=== PATIENT | female | born 1970 | race Caucasian/White ===

== ENCOUNTER 2024-08-15 12:07 | Emergency (ER) | payer OTHER, SELFPAY ==
[2024-08-15 12:10] VITALS: BP 102/60; PULSE 70; RESP 18; TEMP 36.8; O2SAT 95; BMI 21.6
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
[2024-08-15 12:57] LABS: Microscopic, Urine URINE MICROSCOPIC (MICROSCOPIC)
[2024-08-15 13:09] LABS: Bacteria,Urine Trace /lpf; RBC,Urine Occasional #/hpf (0-3)
[2024-08-15 13:11] LABS: Appearance,Urine CLEAR (Clear); Bilirubin,Urine 2+ (Negative); Blood, Urine Negative (Negative); Color,Urine YELLOW (Yellow); Glucose,Urine (UA) Negative (Negative); Ketones,Urine TRACE (Negative); Leukocyte Esterase,Urine 1+ (Negative); Nitrate,Urine Negative (Negative); Protein,Urine Negative (Negative); Specific Gravity, Urine >= 1.030 (1.005-1.030)
[2024-08-15 13:21] LABS: Benzodiazepines Screen,Urine Negative ng/ml (<200)
[2024-08-15 13:22] LABS: Amphetamine/Metha Screen,Urine Negative ng/ml (<1000)
[2024-08-15 13:23] LABS: Barbiturates Screen,Urine Negative ng/ml (<200); Cannabinoid Screen,Urine Negative ng/ml (<50)
[2024-08-15 13:24] LABS: Cocaine Screen,Urine Negative ng/ml (<300); Methadone Screen,Urine Negative ng/ml (<300)
[2024-08-15 13:25] LABS: Opiate Screen,Urine Negative ng/ml (<300)
[2024-08-15 13:26] LABS: Phencyclidine Screen,Urine Negative ng/ml (<25)
--- NOTE | 2024-08-15 13:41 | ECG_ITS ---
APPROVED REPORT Exam: Resting ECG HR:94 bpm ECG Measurements Heart Rate 94 AXES VT 164 P 51 QRSd 103 QRS -52 QT 318 T 62 QTc 369 Conclusion SINUS RHYTHM LOW QRS VOLTAGE IN PRECORDIAL LEADS [QRS DEFLECTION < 1.0 mV IN CHEST LEADS] LEFT ANTERIOR FASCICULAR BLOCK [QRS AXIS <= -45, QR IN I, RS IN II] NONSPECIFIC T-WAVE ABNORMALITY ABNORMAL ECG UNCONFIRMED REPORT Electronically signed by : MARISABEL COTO, 08/16/2024 05:44:07
[2024-08-15 14:07] LABS: Basophils % 0.3 % (0.1-2.0); Eosinophils % 0.2 % (0.1-12.0); Hematocrit 45.8 % (37.0-47.0); Hemoglobin 15.7 g/dL (12.2-16.2); Lymphocytes # 0.4 K/mm3 (0.7-4.5); Lymphocytes % 5.5 % (10-50); Mean Corpuscular HGB Conc 34.3 g/dL (31.8-35.4); Mean Corpuscular Hemoglobin 32.2 pg (27.0-31.2); Mean Platelet Volume 9.1 fl (7.4-10.4); Monocytes # 0.5 K/mm3 (0.1-1.0); Monocytes % 8.1 % (1.7-9.3); Neutrophils # 5.5 K/mm3 (1.8-7.8); Neutrophils % 85.7 % (37.0-80.0); Platelet Count 164 K/mm3 (142-424); Red Blood Count 4.87 M/mm3 (4.20-5.40); Red Cell Distribution Width 11.9 % (11.5-17.5); White Blood Count 6.4 K/mm3 (4.8-10.8)
[2024-08-15 14:18] LABS: Albumin Level 4.8 g/dl (3.5-5.0); Chloride 101 mmol/L (98-107); Sodium 136 mmol/L (136-145)
[2024-08-15 14:21] LABS: Alanine Aminotransferase 42 U/L (12-78); Albumin/Globulin Ratio 1.3 (1.1-1.8); Alkaline Phosphatase 63 U/L (38-126); Aspartate Amino Transferase 38 U/L (14-36); Bilirubin,Total 0.9 mg/dl (0.2-1.3); Blood Urea Nitrogen 20 mg/dl (7-17); Calcium 9.4 mg/dl (8.4-10.2); Carbon Dioxide 28 mmol/L (22.0-30.0); Creatinine Clearance Estimated 67 mL/min (50-200); Estimated Glomerular Filt Rate 65 ml/min (>60); GFR (African American) 79 ML/MIN (>60); Globulin 3.6 g/dL (1.3-3.2); Glucose 93 mg/dl (74-100); Total Protein,Serum 8.4 g/dl (6.3-8.2)
[2024-08-15 14:22] LABS: Acetaminophen < 10 ug/ml (10-30); Ethyl Alcohol < 10 mg/dl (0-10); Salicylate < 1.0 mg/dL (2.0-20.0)
[2024-08-15 15:24] LABS: Triiodothryronine (T3) Uptake 29 % (23.5-40.5)
[2024-08-15 15:25] LABS: Free Thyroxine Index 3.8 ug/dL (5.93-13.13)
--- NOTE | 2024-08-15 15:29 | PC.NURSE ---
Pt is s/w [facility] Intake Nurse
--- NOTE | 2024-08-15 15:30 | PC.NURSE ---
Called [facility] back to double check and make sure they got the fax information. they were checking to see and would call us back
--- NOTE | 2024-08-15 15:31 | PC.NURSE ---
at 1500 hrs called [facility] about this pt. They had me fax over all the information and would call us back after they got it.
[2024-08-15] MEDS: ACETAMINOPHEN 500MG TAB 1000 MG PO (15:38)
[2024-08-15] MEDS: BELLADONNA ALKALOIDS 60 ML ML PO (15:38)
[2024-08-15 15:39] LABS: Thyroid Stimulating Hormone 0.85 uIU/mL (0.465-4.68)
--- NOTE | 2024-08-15 15:45 | PC.NURSE ---
[facility] called back and the Doctor advised pt would not be a good fit for [facility] due to as paranoid as she is and wouldnt be able to sign consent due to her paranoia.
--- NOTE | 2024-08-15 16:08 | PC.NURSE ---
As pt's face-sheet from [facility] listed no guardian, family, POA. Called [facility] and confirmed that there is not a guardian or family list. They also states pt is NOT a desai of the [facility].
--- NOTE | 2024-08-15 16:34 | PC.NURSE ---
Faxed 710 paperwork to [employer] [employer] for [employer] to sign and return.
--- NOTE | 2024-08-15 18:08 | PC.NURSE ---
Called [employer] to check on the status of the 710 paperwork. [employer]os[employer] Dis[employer] Manager states I gave you the wrong fax number. It was for the front office and they'll shred it in the morning . States fax # is [phone] and will come to [employer]'s direct desk.
--- NOTE | 2024-08-15 19:17 | PC.NURSE ---
Contacted [employer] [employer] regarding clarification for this patient. Spoke with Og Fraga who will be signing off on this patient. Clarified that our facility only signs the 710 and 711 forms and that the recieving facilty will fill out the 712 and 713 form and get those back to him. He was understanding and will get us the forms back as soon as possible.
[2024-08-15] MEDS: ONDANSETRON 4MG ODT 4 MG SL (20:49)
--- NOTE | 2024-08-15 22:43 | PC.NURSE ---
Called [facility] for a transfer to [facility] said they would call back in 5-10 minutes
--- NOTE | 2024-08-15 23:30 | PC.NURSE ---
Report given to Dali GOOD at [facility]
[2024-08-16 01:38] VITALS: BP 113/76; PULSE 119; RESP 16; TEMP 36.1; O2SAT 98
--- NOTE | 2024-08-16 01:55 | PC.NURSE ---
Pt transported to [facility] by [employer]. Pt awake and alert Skin pink warm and dry SPeech clear Gait steady at time of transfer
[2024-08-16 02:30] LABS: HIV Combo NEGATIVE (Negative)
[2024-08-16 02:39] LABS: Hepatitis C Ab Qual. W/ RFX REACTIVE (Negative)
== END 2024-08-16 01:54 ==
PROVIDERS: Physician Assistant; Emergency Provider Emergency Medicine; PCP Nurse Practitioner Acute Care
DX: F29 Unspecified psychosis not due to a substance or known physiological condition (principal); F21 Schizotypal disorder
CPT/HCPCS: 80053; 80307; 80320; 80329; 81001; 84436; 84443; 84479; 85025; 86803; 87086; 87389; 87522; 93005; 99285; G0480; Q0162

== ENCOUNTER 2024-12-26 15:28 | Emergency (ER) | payer OTHER, SELFPAY ==
--- NOTE | 2024-12-26 15:38 | HMH.EDGENADL ---
Discharge Plan Disposition Patient Disposition: Home, Self-Care Condition: Good Prescriptions Prescriptions: New cefadroxil 500 mg capsule 500 mg PO BID Qty: 14 0RF No Action benztropine 0.5 mg tablet 0.5 mg PO DAILY risperidone 3 mg tablet 3 mg PO BID paliperidone 6 mg tablet extended release 24hr 12 mg PO DAILY cholecalciferol (vitamin D3) 50 mcg (2,000 unit) tablet 50 mcg PO DIRECTED Rx Instructions: Give 1 tablet by mouth three times weekly on Sunday, Sunday, and Sunday Referrals Follow up/Referrals: Dali Baez DO [Emergency Provider, Emergency Medicine] - See instructions Provider,Referral, [Primary Care Provider, Medical] - See instructions Tea Bowman MD [Referring, Vascular Surgery] - See instructions Activity Restrictions/Add. Instructions Additional Instructions/Restrictions: You can take Tylenol and Motrin at home if needed for pain control. Otherwise return to the emergency department or follow-up with your primary care provider. Take the antibiotics as prescribed for your urinary tract infection. 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 Clinical Impressions Clinical Impression: Cough, Musculoskeletal pain Instructions Patient Instructions: DI for Acute Abdominal Pain Print Language Print Language: [place] Discharge ED Provider: Dali Baez General Adult HPI General Chief complaint: Abdominal Pain Stated complaint: Schizophrenia Time Seen by Provider: 12/26/24 15:38 History of Present Illness HPI narrative: Patient is a 54-year-old female with a past medical history of schizophrenia on daily medications who presents to the emergency department with bilateral hip pain, shortness of breath and cough. Patient states that she has had a cough for 1 month, productive in nature but is yellow. Patient denies any fevers. Patient denies any chest pain. Patient states that she has had bilateral hip pain for the last few days. Patient denies any recent trauma. Patient denies any back pain headache or vision changes. Patient denies any abdominal pain, vomiting diarrhea. Patient denies any cardiac medical problems. Denies any history of blood clots. Is a daily smoker, smokes a pack a day. Denies any other drug use. Related Data Home Medications ?Medication ?Instructions ?Recorded ?Confirmed benztropine 0.5 mg tablet 0.5 mg PO DAILY 08/15/24 08/15/24 cholecalciferol (vitamin D3) 50 50 mcg PO DIRECTED 08/15/24 08/15/24 mcg (2,000 unit) tablet paliperidone 6 mg tablet,extended 12 mg PO DAILY 08/15/24 08/15/24 release 24 hr risperidone 3 mg tablet 3 mg PO BID 08/15/24 08/15/24 Previous Rx's ?Medication ?Instructions ?Recorded cefadroxil 500 mg capsule 500 mg PO BID #14 caps 12/26/24 Allergies Allergy/AdvReac Type Severity Reaction Status Date / Time prochlorperazine (From Allergy Unknown Verified 08/15/24 13:53 Compazine) allergy reaction [facility] Disclaimer: The information contained in this section may have been updated after the patient was seen, as this information can be updated by other users. Medical History (Updated 12/26/24 @ 19:09 by Dali Baez DO) Vitamin D deficiency Schizophrenia Social History (Updated 08/15/24 @ 21:35 by MIL Edwards) Smoking Status: Current every day smoker alcohol intake: never current occupational status: disabled Travel in the last 8 weeks?: None housing: other lives independently: No ([place] Resident) Have you lived/traveled outside US in past 30 days?: No Contact w/someone who lives/traveled outside US past 30 days?: No Exposure to someone with infectious disease in past 14 days?: No Do you have a fever (greater than 100.4 F or 38 C)?: No Have you tested positive for COVID-19?: No Exposed to someone with COVID-19 in past 14 days?: No Do you have a sore throat?: No Do you have a cough?: No Do you have any weakness?: No Do you have any diarrhea?: No Are you experiencing any unusual bleeding?: No Do you have any muscle aches/pain?: No Do you have any abdominal pain?: No Are you experiencing loss of taste or smell?: No ROS Obtained: Yes All systems reviewed & no additional complaints except as documented and Yes Systems reviewed as appropriate & no additional complaints except as documented Physical Exam General General appearance: alert Head Head exam: atraumatic, normocephalic and normal inspection Eye Eye exam: Present normal appearance, PERRL and EOMI; Absent scleral icterus ENT ENT exam: Present normal exam and normal external ear exam Neck Neck exam: Present normal inspection and full ROM Chest Chest inspection: Present normal inspection and symmetric chest wall rise Respiratory Respiratory exam: Present normal lung sounds bilaterally, wheezes and other (Expiratory wheezing in right lung field); Absent respiratory distress Cardiovascular Cardiovascular exam: Present normal rhythm, tachycardia and normal heart sounds Abdominal Exam Abdominal exam: Present soft and distention; Absent tenderness, guarding or rebound Extremities Exam Extremities exam: Present normal inspection, full ROM and other (Bilateral hip tenderness) Back Exam Back exam: Present normal inspection and full ROM Neurological Exam Neurological exam: Present alert, oriented X3 and normal gait Psychiatric Psychiatric exam: Present normal affect and normal mood Skin Skin exam: Present warm and dry Medical Decision Making Medical Records Screening: Per USPSTF and CDC recommendations, given the prevalence of disease in our region, it is our hospital?s policy to screen for HIV and viral Hepatitis for all patients aged 18 and over and those with ongoing risk factors. Keven Inquiry Pt receiving controlled substance: No Vital Signs: 12/26/24 15:57 12/26/24 16:00 12/26/24 16:30 Temperature 97.9 F Temperature Source Oral Pulse Rate 90 96 H Pulse Rate [Left] 93 H Respiratory Rate 20 18 18 Blood Pressure 142/85 H 117/88 Blood Pressure [Right Arm] 142/86 H Blood Pressure Mean 110 97 Blood Pressure Mean [Right Arm] 104 Blood Pressure Source [Right Arm] Automatic Cuff Blood Pressure Position 02 Sat by Pulse Oximetry 96 98 96 Oxygen Delivery Method Room Air 12/26/24 17:48 12/26/24 17:50 12/26/24 19:50 Temperature 98.9 F Temperature Source Oral Pulse Rate 100 H 94 H 74 Pulse Rate [Left] Respiratory Rate 18 18 16 Blood Pressure 198/117 H 163/115 H 148/60 H Blood Pressure [Right Arm] Blood Pressure Mean 125 121 Blood Pressure Mean [Right Arm] Blood Pressure Source [Right Arm] Blood Pressure Position Sitting 02 Sat by Pulse Oximetry 97 97 Oxygen Delivery Method Room Air Lab Data Lab results reviewed: Yes I reviewed the patient's lab results. Lab Results 12/26/24 16:06: Urine Color Yellow, Urine Appearance Clear, Urine pH 6.0, Ur Specific [place] <= 1.005, Urine Protein Negative, Urine Glucose (UA) Negative, Urine Ketones Negative, Urine Blood Trace-i, Urine Nitrate Negative, Urine Bilirubin Negative, Urine Urobilinogen 0.2, Ur Leukocyte Esterase 1+ A, Urine RBC 10-20, Urine WBC 5-10, Ur Squamous Epith Cells 3-5, Urine Bacteria 1+ 12/26/24 16:43: WBC 8.9, RBC 4.76, Hgb 15.4, Hct 44.4, MCV 93.3, MCH 32.4 H, MCHC 34.7, RDW 11.8, Plt Count 222, MPV 9.2, Neut % (Auto) 79.7, Lymph % (Auto) 14.2, [place] % (Auto) 5.4, Eos % (Auto) 0.0 L, Baso % (Auto) 0.5, Neut # (Auto) 7.1, Lymph # (Auto) 1.3, [place] # (Auto) 0.5, Eos # (Auto) 0.0, Baso # (Auto) 0.0, D-Dimer 1.16 H, Sodium 139, Potassium 4.1, Chloride 108 H, Carbon Dioxide 22, Anion Gap 13.1, BUN 5 L, Creatinine 0.80, Estimated Creat Clear 75, Estimated GFR 75, Est GFR ( Amer) 90, Glucose 123 H, Calcium 9.9, Total Bilirubin 0.6, AST 40 H, ALT 39, Alkaline Phosphatase 80, Troponin I < 0.01, Total Protein 8.3 H, Albumin 4.6, Globulin 3.7 H, Albumin/Globulin Ratio 1.2 12/26/24 16:43 12/26/24 16:43 Orders (Tests/Meds): ED MEDICATIONS Discontinued Medications Generic Name Dose Route Start Last Admin Trade Name Freq PRN Reason Stop Dose Admin Acetaminophen 1,000 mg 12/26/24 15:53 12/26/24 16:45 Acetaminophen 500mg Tab PO 12/26/24 15:54 1,000 mg ONCE ONE Administration Albuterol/Ipratropium 3 ml 12/26/24 15:53 12/26/24 16:45 Ipratropium/Albuterol 3 Ml Neb IH 12/26/24 15:54 3 ml ONCE ONE Administration Ceftriaxone Sodium 1 gm/ 50 mls @ 100 mls/hr 12/26/24 17:00 12/26/24 17:01 Sodium Chloride IV 01/05/25 16:59 100 mls/hr Q24H GABO Administration Iopamidol 70 ml 12/26/24 17:47 12/26/24 17:48 Iopamidol-370 (76%);100ml Bottle IV 12/26/24 17:48 70 ml ONCE ONE Administration Ketorolac Tromethamine 30 mg 12/26/24 15:53 12/26/24 16:45 Ketorolac 30mg/Ml Vial IV 12/26/24 15:54 30 mg ONCE ONE Administration Sodium Chloride 50 ml 12/26/24 17:47 12/26/24 17:48 0.9 % Sodium Chloride 50 Ml Vial IV 12/26/24 17:48 50 ml ONCE ONE Administration Sodium Chloride 10 ml 12/26/24 17:47 12/26/24 17:48 Sodium Chloride 0.9% 10ml Syr (Rad Only) IV 12/26/24 17:48 10 ml ONCE ONE Administration ORDERS Category Date Time Status CT angio chest PE protocol Stat Cat Scan 12/26/24 17:21 Completed CXR 2 view (NOT portable) [XR chest 2V] Stat Exams 12/26/24 15:53 Completed Pelvis XR 1-2 views [XR pelvis 1-2V] Stat Exams 12/26/24 15:53 Completed CBC w/Auto Diff [Complete Blood Count Auto Diff] Stat Lab 12/26/24 16:43 Completed CMP [Comprehensive Metabolic Panel] Stat Lab 12/26/24 16:43 Completed D-Dimer Stat Lab 12/26/24 16:43 Completed Trop I [Troponin I] Stat Lab 12/26/24 16:43 Completed UA [Urinalysis and Microscopic] Stat Lab 12/26/24 16:06 Completed Urine Culture Stat Micro 12/26/24 16:06 Completed Medical Decision Narrative: Patient is a 54-year-old female with a past medical history of schizophrenia who presents to the emergency department with bilateral hip pain, shortness of breath cough. On arrival, patient was tachycardic but normotensive, afebrile. Differential includes but not limited to: COPD, upper respiratory infection, pneumonia, pleural effusion, pneumothorax, fracture, dislocation, sprain, strain, ACS/MN, amongst others. Patient's labs were reviewed and interpreted by myself. Patient's CBC showed mild cytosis, no hemoglobin was stable. CMP was unremarkable. Patient's D-dimer was elevated. Chest x-ray was reviewed and interpreted by myself and showed no acute focal consolidation, pneumothorax, pleural effusion or other acute cardiopulmonary process. Pelvis x-ray was reviewed and interpreted by myself and showed no acute fracture or other acute bony abnormality. CTA of the chest was obtained given patient's elevated D-dimer which was negative for acute pulmonary embolism. Patient was given a DuoNeb which improved patient's cough in the emergency department. Patient's urine showed evidence of infection therefore patient was given a dose of Rocephin in the emergency department. Patient was able to ambulate without difficulty therefore, I felt the patient was appropriate for discharge home. Patient's vital signs were otherwise stable. Patient sent with a dose of cefadroxil for her urinary tract infection and patient was discharged from signature. Critical Care Critical Care Time Critical Care Time: No
--- OUTSIDE RECORDS SUMMARY | 2024-12-26 15:43 | XMS_ITS | Encounter Summary ---
Author Organization Healthcare Address [address] [id number] Care Team Providers Care Plater Helper Name Role Phone Pcp, No Primary Care Provider Unavailabl e Encounter Details Date Type Department Care Team (Late st Contact Info) Description 08/16/2024 Lab Requisition [facility] [address] [place] [address] System, Provider Not In, [address] [place] [address] Routine general medical examination at a health care facility Social History Tobacco Use Types Packs/Day Years Used Date Smoking Tobacco: Every Day Cigarettes Smokeless Tobacco: Never Alcohol Use Standard Drinks/Week Comments Not Currently 0 (1 standard drink = 0.6 oz pur e alcohol) PHQ-2 Answer Date Recorded Patient Health Questionnaire-2 Score 3 08/16/2024 PHQ-9 Answer Date Recorded Patient Health Questionnaire-9 Score 6 08/16/2024 Comments Unknown Sex and Gender Information Value Date Recorded Sex Assigned at Not on file Legal Sex Female 6:36 PM EDT Gender Identity Not on file Sexual Orientation Not on file documented as of this encounter Functional Status * Over the past 2 weeks, how often have you been bothered by any of the following problems? Question Answer Date of Assessment Author Patient Health Questionnaire -2 Score 3 08/16/2024 2:36 AM Gillian Tucker RN * Calculated C-SSRS Risk Score (Lifetime/Recent) Answer Date of Assessment Author No Risk Indicated 08/16/2024 2:34 AM Solo Nixon RN * How difficult have these problems made it for you to do your work, take care of things at home, or get along with other people? Answer Date of Assessment Author Somewhat difficult 08/16/2024 2:36 AM Solo Hsieh RN * Over the past 2 weeks, how often have you been bothered by any of the following problems? Question Answer Date of Assessment Author Little interest or pleasure in doing things Not at all 08/16/2024 2:36 AM Solo Tucker RN Feeling down, depressed, or hopeless Nearly every day 08/16/2024 2:36 AM Solo Tucker RN Trouble falling or staying asleep, or sleeping too much Not at all 08/16/2024 2:36 AM Solo Tucker RN Feeling tired or having little energy Several days 08/16/2024 2:36 AM Solo Tucker RN Poor appetite or overeating Not at all 08/16/2024 2:36 AM Solo Tucker RN Feeling bad about yourself - or that you are a failure or have let yourself or your family down Several days 08/16/2024 2:36 AM Solo Tucker RN Trouble concentrating on things, such as reading the newspaper or watching television Not at all 08/16/2024 2:36 AM Solo Tucker RN Moving or speaking so slowly that other people could have noticed? Or the opposite - being so fidgety or restless that you have been moving around a lot more than usual. Several days 08/16/2024 2:36 AM Solo Tucker RN Thoughts that you would be better off or hurting yourself in some way Not at all 08/16/2024 2:36 AM Solo Tucker RN Patient Health Questionnaire-9 Score 6 08/16/2024 2:36 AM Solo Tucker RN * Question Answer Date of Assessment Author 1. Wish to be (Past 1 Month) No 08/16/2024 2:34 AM Gillian Tucker RN 2. Non-Specific Active Suicidal Thoughts (Past 1 Month) No 08/16/2024 2:34 AM Gillian Tucker RN 6. Suicidal Behavior (Lifetime) No 08/16/2024 2:34 AM EST Larrimore, Lafaye tte, RN documented as of this encounter Plan of Treatment Not on file documented as of this encounter Procedures Procedure Name Priority Date/Time Associated Diagnosis Comments URINE CULTURE Routine 08/16/2024 10:10 AM EST Routine general medical examination at a health care facility documented in this encounter Results * Urine Culture (08/16/2024 10:10 AM EST) Culture 10,000 - 100,000 CFU/mL Mixed urogenital, fecal, or skin zarina present. 08/17/2024 10:57 AM EDT [facility] Urine Urine specimen obtained by clean catch procedure / Unknown 08/16/2024 10:10 AM EST 08/16/2024 11:53 AM EST us Provider Not In System MD LAB MICROBIOLOGY - GEN ERAL ORDERABLES Final Result [facility] [address] [place] [address] documented in this encounter Visit Diagnoses Diagnosis Routine general medical examination at a health care facility documented in this encounter Additional Health Concerns Infection Onset Date Last Indicated Resolved Time COVID-19 Rule-Out 08/16/2024 08/16/2024 08/16/2024 2:03 PM EST Influenza 08/16/2024 08/16/2024 09/13/2024 9:53 PM EDT Assessment Noted Time PHQ-9 Depression Total Score: 6 08/17/19 2:36 AM EST documented as of this encounter Care Teams Plater Helper Relationship Specialty Start Date End Date Pcp, No [address] [place] [address] PCP - General Family Medicine 08/16/24 documented as of this encounter
--- OUTSIDE RECORDS SUMMARY | 2024-12-26 15:43 | XMS_ITS | Encounter Summary ---
Author Organization Healthcare Address [address] [place] [address] Care Team Providers Care Vp Human Resources Name Role Phone Pcp, No Primary Care Provider Unavailabl e Encounter Details Date Type Department Care Team (Late st Contact Info) Description 08/18/2024 Lab Requisition Located Within [facility] [address] [place] [address] Patricia Millan MD [address] [place] [phone] Routine general medical examination at a health [...] on file documented as of this encounter Plan of Treatment Not on file documented as of this encounter Procedures Procedure Name Priority Date/Time Associated Diagnosis Comments HEPATITIS B SURFACE ANTIGEN - ESH Routine 08/18/2024 8:00 AM EDT Routine general medical examination at a health care facility HIV 1/2 ANTIBODY/ANTIGEN SCREEN W/REFLEX TO HIV 1/2 ANTIBODY DIFFERENTIATION Routine 08/18/2024 8:00 AM EDT Routine general medical examination at a health care facility HIV 1/2 ANTIBODY/ANTIGEN SCREEN WITH REFLEX TO HIV I/II DIFFERENTIATION Routine 08/18/2024 8:00 AM EDT Routine general medical examination at a [facility] care facility CBC WITH AUTO DIFFERENTIAL Routine 08/18/2024 8:00 AM EDT Routine general medical examination at a [facility] care facility TSH Routine 08/18/2024 8:00 AM EDT Routine [facility] FREE T4, PLASMA Routine 08/18/2024 8:00 AM EDT Routine general medical examination at a [facility] HEMOGLOBIN A1C Routine 08/18/2024 8:00 AM EDT Routine general medical examination at [facility] LIPID PROFILE, PLASMA Routine 08/18/2024 8:00 AM EDT Routine general medical examination at [facility] COMPREHENSIVE METABOLIC PANEL, PLASMA Routine 08/18/2024 8:00 AM EDT Routine [facility] documented in this encounter Results * HIV 1 & 2 Antibody/Antigen Screen (08/18/2024 8:00 AM EDT) Pathologist [facility] HIV 1 & 2 Antibody/Antigen Screen Non Reactive Non Reactive 08/18/2024 10:28 AM EDT [facility] Comment:Screening for HIV 1 & 2 antibodies, and P24 antigen is NONREACTIVE. No confirmatory testing is required. Blood Venous blood specimen / Unknown Venipuncture / Unknown 08/18/2024 8:00 AM EDT 08/18/2024 8:40 AM EDT us Patricia Millan MD LAB BLOOD ORDERABLES Final Res ult [facility] [address] [place] [address] * TSH (08/18/2024 8:00 AM EDT) Thyroid Stimulating Hormone, Plasma 0.99 0.40 - 4.20 uIU/mL 08/18/2024 10:35 AM EDT [facility] Blood Venous blood specimen / Unknown Venipuncture / Unknown 08/18/2024 8:00 AM EDT 08/18/2024 8:38 AM EDT [facility] - 08/18/2024 10:35 AM EDT Trimester Specific Ranges TSH ( IU/mL) 1st Trimester 0.1 - 3.0 2nd Trimester 0.19 - 4.06 3rd Trimester 0.3 - 3.7 Patricia Millan MD LAB BLOOD ORDERABLES Final Res ult Performing Organization Address City/[facility]/ZIP Co de Phone Number [facility] [address] [place] [address] * T4, free (08/18/2024 8:00 AM EDT) Free T4, Plasma 1.1 0.8 - 1.7 ng/dL 08/18/2024 10:35 AM EDT [facility] Blood Venous blood specimen / Unknown Venipuncture / Unknown 08/18/2024 8:00 AM EDT 08/18/2024 8:38 AM EDT [facility] - 08/18/2024 10:35 AM EDT Free T4 Trimester Specific Ranges 1st Trimester 0.9 - 1.50 ng/dL 2nd Trimester 0.7 - 1.40 ng/dL 3rd Trimester 0.7 - 1.24 ng/dL us Patricia Millan MD LAB BLOOD ORDERABLES Final Res ult Performing Organization Address City/[facility]/ZIP Co de Phone Number [facility] [address] [place] [address] * Hemoglobin A1c (08/18/2024 8:00 AM EDT) Hemoglobin A1c 5.4 <5.7 % 08/18/2024 10:29 AM EDT [facility] Blood Venous blood specimen / Unknown Venipuncture / Unknown 08/18/2024 8:00 AM EDT 08/18/2024 8:35 AM EDT [facility] - 08/18/2024 10:29 AM EDT HA1C Interpretive Data: Diagnosis of Diabetes: Diabetic > or = 6.5% Pre-diabetic 5.7 to 6.4% Non-diabetic < or = 5.6% Glycemic Targets for Type I and Type II Diabetics: Non- Adults <7.0% Adults <6.0% Children and Adolescents <7.5% Source: [place] [employer]. Standards of medical care in diabetes,2017. Diabetes Care.2017:40 (suppl 1):S1-S135. HbA1c assay performed by an ion-exchange chromatography method that is certified traceable to the DCCT. us Patricia Millan MD LAB BLOOD ORDERABLES Final Res ult [facility] [address] [place] [address] * (ABNORMAL) Lipid panel (08/18/2024 8:00 AM EDT) Cholesterol, Plasma 103 <200 mg/dL 08/18/2024 10:35 AM EDT [facility] Comment: Cholesterol Reference Range (age >17 years): Desirable <200 mg/dL Borderline 200 to 239 mg/dL Undesirable >239 mg/dL HDL 26(L) >=50 mg/dL 08/18/2024 10:35 AM EDT [facility] Comment: HDL Cholesterol Reference Ranges (age >17 years): Female, acceptable > or = 50 mg/dL Male, acceptable > or = 40 mg/dL Triglycerides, Plasma 95 <150 mg/dL 08/18/2024 10:35 AM EDT [facility] Comment: Triglyceride Reference Range (age >17 years): Desirable: <150 mg/dL Borderline high: 150 to 199 mg/dL High: 200 to 499 mg/dL Very high: >499 mg/dL Increased risk of pancreatitis: >1000 mg/dL Cholesterol/HDL Ratio 4 08/18/2024 10:35 AM EDT [facility] LDL, Calculated 58 <100 mg/dL 10:35 AM EDT [facility] Comment: LDL Cholesterol Reference Range (age >17 years): Optimal: <100 mg/dL Near or above optimal: 100 - 129 mg/dL Borderline high: 130 - 159 mg/dL High: 160 - 189 mg/dL Very high: >189 mg/dL LDL Cholesterol Reference Range (age <18 years): Desirable: <110 mg/dL Borderline: 110 - 129 mg/dL Undesirable: >130 mg/dL LDL Cholesterol is calculated using the Alvarado/NIH equation. Fasting greater than or equal to 12 hours? Unknown 08/18/2024 10:35 AM EDT [facility] Blood Venous blood specimen / Unknown Venipuncture / Unknown 08/18/2024 8:00 AM EDT 08/18/2024 8:38 AM EDT us Patricia Millan MD LAB BLOOD ORDERABLES Final Res ult [facility] [address] [place] [id number] * (ABNORMAL) Comprehensive metabolic panel (08/18/2024 8:00 AM EDT) Glucose, Plasma 93 74 - 99 mg/dL 08/18/2024 10:35 AM EDT [facility] BUN, Plasma 16 7 - 21 mg/dL 08/18/2024 10:35 AM EDT [facility] Creatinine, Plasma 0.93 0.60 - 1.10 mg/dL 08/18/2024 10:35 AM EDT [facility] BUN/Creatinine Ratio 17 08/18/2024 10:35 AM EDT [facility] Sodium, Plasma 132(L) 136 - 145 mmol/L 08/18/2024 10:35 AM EDT [facility] Potassium, Plasma 4.1 3.6 - 4.9 mmol/L 08/18/2024 10:35 AM EDT [facility] Chloride, Plasma 98 97 - 107 mmol/L 08/18/2024 10:35 AM EDT [facility] CO2, Plasma 24 22 - 29 mmol/L 08/18/2024 10:35 AM EDT [facility] Anion Gap 10 6 - 16 mmol/L 08/18/2024 10:35 AM EDT [facility] Total Calcium, Plasma 8.8(L) 8.9 - 10.2 mg/dL 08/18/2024 10:35 AM EDT [facility] Total Protein 7.2 6.3 - 7.9 g/dL 08/18/2024 10:35 AM EDT [facility] Albumin, Plasma 3.8 3.5 - 5.2 g/dL 08/18/2024 10:35 AM EDT [facility] AST, Plasma 33 10 - 35 U/L 08/18/2024 10:35 AM EDT [facility] ALT, Plasma 29 10 - 35 U/L 08/18/2024 10:35 AM EDT [facility] Alkaline Phosphatase, Plasma 55 35 - 104 U/L 08/18/2024 10:35 AM EDT [facility] Total Bilirubin, Plasma 0.6 0.2 - 1.1 mg/dL 08/18/2024 10:35 AM EDT [facility] eGFRcr 73.6 mL/min/1.7 3m*2 08/18/2024 10:35 AM EDT [facility] Comment:Reported eGFRcr in m L/min/1.73m2 is based the CKD-EPI 2020 equation that does not use a race coefficient. Blood Venous blood specimen / Unknown Venipuncture / Unknown 08/18/2024 8:00 AM EDT 08/18/2024 8:38 AM EDT us Patricia Millan MD LAB BLOOD ORDERABLES Final Res ult [facility] [address] [place] [address] * (ABNORMAL) CBC and Differential (08/18/2024 8:00 AM EDT) WBC Count 6.16 3.70 - 10.30 10*3/uL LAB HEMATOLOGY METHOD 08/18/2024 9:50 AM EDT [facility] RBC Count 4.47 3.90 - 5.20 10*6/uL LAB HEMATOLOGY METHOD 08/18/2024 9:50 AM EDT [facility] HGB 13.9 11.2 - 15.7 g/dL LAB HEMATOLOGY METHOD 08/18/2024 9:50 AM EDT [facility] HCT 41.7 34.0 - 45.0 % LAB HEMATOLOGY METHOD 08/18/2024 9:50 AM EDT [facility] Platelet Count 118(L) 155 - 369 10*3/uL LAB HEMATOLOGY METHOD 08/18/2024 9:50 AM EDT [facility] MCV 93 79 - 98 fL LAB HEMATOLOGY METHOD 08/18/2024 9:50 AM EDT [facility] MCH 31.1 26.0 - 32.0 pg LAB HEMATOLOGY METHOD 08/18/2024 9:50 AM EDT [facility] MCHC 33.3 30.7 - 35.5 g/dL LAB HEMATOLOGY METHOD 08/18/2024 9:50 AM EDT [facility] RDW 11.8 11.5 - 14.5 % LAB HEMATOLOGY METHOD 08/18/2024 9:50 AM EDT [facility] MPV 9.9 8.8 - 12.5 fL LAB HEMATOLOGY METHOD 08/18/2024 9:50 AM EDT [facility] nRBC 0.0 <=0.0 per 100 WBCs LAB HEMATOLOGY METHOD 08/18/2024 9:50 AM EDT [facility] Differential Type Automated LAB HEMATOLOGY METHOD 08/18/2024 9:50 AM EDT [facility] Neutrophils % 57 % LAB HEMATOLOGY METHOD 08/18/2024 9:50 AM EDT [facility] Lymphocytes % 26 % LAB HEMATOLOGY METHOD 08/18/2024 9:50 AM EDT [facility] Monocytes % 17 % LAB HEMATOLOGY METHOD 08/18/2024 9:50 AM EDT [facility] Eosinophils % 0 % LAB HEMATOLOGY METHOD 08/18/2024 9:50 AM EDT [facility] Basophils % 0 % LAB HEMATOLOGY METHOD 08/18/2024 9:50 AM EDT [facility] Immature Granulocytes % 0 % LAB HEMATOLOGY METHOD 08/18/2024 9:50 AM EDT [facility] Neutrophils Absolute 3.50 1.60 - 6.10 10*3/uL LAB HEMATOLOGY METHOD 08/18/2024 9:50 AM EDT [facility] Lymphocytes Absolute 1.57 1.20 - 3.90 10*3/uL LAB HEMATOLOGY METHOD 08/18/2024 9:50 AM EDT [facility] Monocytes Absolute 1.06(H) 0.30 - 0.90 10*3/uL LAB HEMATOLOGY METHOD 08/18/2024 9:50 AM EDT [facility] Eosinophils Absolute 0.00 0.00 - 0.50 10*3/uL LAB HEMATOLOGY METHOD 08/18/2024 9:50 AM EDT [facility] Basophils Absolute 0.02 0.00 - 0.10 10*3/uL LAB HEMATOLOGY METHOD 08/18/2024 9:50 AM EDT [facility] Immature Granulocytes Absolute 0.01 0.00 - 0.06 10*3/uL LAB HEMATOLOGY METHOD 08/18/2024 9:50 AM EDT [facility] Blood Venous blood specimen / Unknown Venipuncture / Unknown 08/18/2024 8:00 AM EDT 08/18/2024 8:42 AM EDT Narrative [facility] - 08/18/2024 9:50 AM EDT Therapeutic decision making should be based on absolute values, rather than percentages. us Patricia Millan MD LAB BLOOD ORDERABLES Final Res ult [facility] [address] [place] [address] * Hepatitis B Surface Antigen - [facility] (08/18/2024 8:00 AM EDT) Hepatitis B Surf Antigen Negative Negative 08/18/2024 11:12 AM EDT [facility] Blood Venous blood specimen / Unknown Venipuncture / Unknown 08/18/2024 8:00 AM EDT 08/18/2024 8:33 AM EDT Patricia Millan MD LAB BLOOD ORDERABLES Final Res ult [facility] [address] [place] [address] documented in this encounter Visit Diagnoses Diagnosis Routine general medical examination at a health care facility documented in this encounter Additional Health Concerns Infection Onset Date Last Indicated Resolved Time Influenza 08/16/2024 08/16/2024 09/13/2024 9:53 PM EDT Assessment Noted Time PHQ-9 Depression Total Score: 6 08/17/19 2:36 AM EST documented as of this encounter Care Teams Vp Human Resources Relationship Specialty Start Date End Date Pcp, No [address] [place] [address] PCP - General Family Medicine 08/16/24 documented as of this encounter
--- OUTSIDE RECORDS SUMMARY | 2024-12-26 15:43 | XMS_ITS | Encounter Summary ---
Author Organization Healthcare Address [address] [phone] Care Team Providers Care Information Technology Program Manager Name Role Phone Pcp, No Primary Care Provider Unavailabl e Encounter Details Date Type Department Care Team (Late st Contact Info) Description 08/16/2024 Lab Requisition [facility] [address] [place] [address] System, Provider Not In, [address] [place] [address] Encounter for screening for COVID-19; Routine general medical examination at a health [...] Suicidal Behavior (Lifetime) No 08/16/2024 2:34 AM Gillian Tucker RN documented as of this encounter Plan of Treatment Scheduled Orders Name Type Priority Associated Diagnoses Orde r Schedule SARS-CoV-2, Flu A, Flu B, and RSV - Rapid LAB ORDER ONLY Microbiology Routine Encounter for screening for COVID-19 Ordered: 08/16/2024 documented as of this encounter Procedures Procedure Name Priority Date/Time Associated Diagnosis Comments SARS-COV-2, FLU A, FLU B, AND RSV - RAPID Routine 08/16/2024 10:05 AM EST Encounter for screening for COVID-19 Routine general medical examination at a [facility] documented in this encounter Results * (ABNORMAL) SARS-CoV-2, Flu A, Flu B, and RSV - Rapid (08/16/2024 10:05 AM EST) Pathologist [facility] SARS CoV-2/COVID-19 RNA PCR Result Not Detected Not Detected 08/17/2024 10:44 AM EDT [facility] Influenza A Virus PCR Result Detected(A) Not Detected 08/17/2024 10:44 AM EDT [facility] Influenza B Virus PCR Result Not Detected Not Detected 08/17/2024 10:44 AM EDT [facility] Respiratory Syncytial Virus (RSV) PCR Result Not Detected Not Detected 08/17/2024 10:44 AM EDT [facility] Swab 08/16/2024 10:0 5 AM EST 08/16/2024 11:49 AM EST Narrative [facility] - 08/17/2024 10:44 AM EDT This test is FDA approved for use with nasopharyngeal specimens in Viral Transport Media (VTM). This test is used for clinical purposes. It should not be regarded as investigational or for research. This laboratory is certified under the Clinical Laboratory improvement Amendments of 1988 (CLIA-88 as qualified to perform high complexity clinical laboratory testing. This test was performed on the Xpert Xpress SARS CoV-2 Plus assay test, a PCR- based method. Negative results should be considered presumptive and do not preclude current or future infection obtained through community transmission or other exposures. Negative results must be considered in the context of an individual's recent exposures, history, presence of clinical signs and symptoms consistent with COVID-19. us Provider Not In System MD LAB MICROBIOLOGY - GEN ERAL ORDERABLES Final Result [facility] [address] [place] [address] documented in this encounter Visit Diagnoses Diagnosis Encounter for screening for COVID-19 Routine general medical examination at a health care facility documented in this encounter Additional Health Concerns Infection Onset Date Last Indicated Resolved Time COVID-19 Rule-Out 08/16/2024 08/16/2024 08/16/2024 2:03 PM EST Influenza 08/16/2024 08/16/2024 09/13/2024 9:53 PM EDT Assessment Noted Time PHQ-9 Depression Total Score: 6 08/17/19 2:36 AM EST documented as of this encounter Care Teams Information Technology Program Manager Relationship Specialty Start Date End Date Pcp, No [address] [place] [address] PCP - General Family Medicine 08/16/24 documented as of this encounter
--- OUTSIDE RECORDS SUMMARY | 2024-12-26 15:43 | XMS_ITS | Encounter Summary ---
Author Organization Healthcare Address [address] [place] [address] Care Team Providers Care Purchasing Specialist Name Role Phone Pcp, No Primary Care Provider Unavailabl e Encounter Details Date Type Department Care Team (Late st Contact Info) Description 08/19/2024 Lab Requisition [facility] [address] [place] [address] Kimberley Maddox, PA [address] [place] [address] Routine general medical examination at a health [...] Procedure Name Priority Date/Time Associated Diagnosis Comments RISPERIDONE AND METABOLITE, SERUM OR PLASMA (SO) Routine 08/18/2024 8:00 AM EDT Routine general medical examination at a health care facility documented in this encounter Results * (ABNORMAL) Risperidone Level (08/18/2024 8:00 AM EDT) Risperidone Serum/Plasma 17.3(L) 20.0 - 60.0 ng/mL 08/25/2024 12:55 PM EDT [facility] ([facility]) 9 [place] Risperidone Serum/Plasma 129.6(H) 20.0 - 60.0 ng/mL 08/25/2024 12:55 PM EDT [facility] ([facility]) Total Risper/9 [place] Risper 146.9(H) 20.0 - 120.0 ng/mL 08/25/2024 12:55 PM EDT [facility] ([facility]) Blood Venous blood specimen / Unknown Venipuncture / Unknown 08/18/2024 8:00 AM EDT 08/19/2024 5:11 AM EDT Narrative [facility] ([facility]) - 08/25/2024 12:55 PM EDT INTERPRETIVE INFORMATION: Risperidone and Metabolite, Serum or Plasma Therapeutic range (Risperidone).................20-60 ng/mL Therapeutic range (9 [place] Risperidone (Paliperidone)) ................................................20-60 ng/mL Toxic range (Risperidone and Metabolite) .....................................Greater than 120 ng/mL The therapeutic range is based on serum pre-dose (trough) draw at steady-state concentration. Adverse effects to risperidone therapy may include headache, nausea, dizziness, tachycardia, orthostatic hypotension and dyskinesia. This test was developed and its performance characteristics determined by [facility]. It has not been cleared or approved by the [place] Food and Drug Administration. This test was performed in a CLIA certified laboratory and is intended for clinical purposes. Performed By: [facility] [address] [place], [place] [id number] Commercial Real Estate Sales Manager: Arpan Pantoja MD, PhD CLIA Number: [id number] Kimberley JAEGER LAB BLOOD ORDERABLES Final Result [facility]) [address] [place], [place] [id number] documented in this encounter Visit Diagnoses Diagnosis Routine general medical examination at a health care facility documented in this encounter Additional Health Concerns Infection Onset Date Last Indicated Resolved Time Influenza 08/16/2024 08/16/2024 09/13/2024 9:53 PM EDT Assessment Noted Time PHQ-9 Depression Total Score: 6 08/17/19 2:36 AM EST documented as of this encounter Care Teams Purchasing Specialist Relationship Specialty Start Date End Date Pcp, Marilee [address] [place] [address] PCP - General Family Medicine 08/16/24 documented as of this encounter
--- OUTSIDE RECORDS SUMMARY | 2024-12-26 15:43 | XMS_ITS | Encounter Summary ---
Author Organization Healthcare Address [address] [id number] Care Team Providers Care Erp Programmer Name Role Phone Pcp, No Primary Care Provider Unavailabl e Encounter Details Date Type Department Care Team (Late st Contact Info) Description 08/16/2024 Lab Requisition [facility] [address] [place] [address] System, Provider Not In, [address] [place] [address] Routine general medical examination at a health [...] Not at all 08/16/2024 2:36 AM Solo Tucekr RN Patient Health Questionnaire-9 Score 6 08/16/2024 [...] Procedure Name Priority Date/Time Associated Diagnosis Comments , URINE Routine 08/16/2024 10:1 0 AM EST Routine general medical examination at a health care facility documented in this encounter Results * , urine (08/16/2024 10:10 AM EST) Urine Negative Negative 12:01 PM EST [facility] Comment:False negative resul ts have been reported in some women after 7 weeks of gestation. Plasma hCG testing is recommended if clinically indicated. Urine Urine specimen obtained by clean catch procedure / Unknown 08/16/2024 10:10 AM EST 08/16/2024 11:47 AM EST us Provider Not In System MD LAB URINE ORDERABLES F inal Result [facility] [address] [place] [address] documented in this encounter Visit Diagnoses Diagnosis Routine general medical examination at a health care facility documented in this encounter Additional Health Concerns Infection Onset Date Last Indicated Resolved Time COVID-19 Rule-Out 08/16/2024 08/16/2024 08/16/2024 2:03 PM EST Influenza 08/16/2024 08/16/2024 09/13/2024 9:53 PM EDT Assessment Noted Time PHQ-9 Depression Total Score: 6 08/17/19 25 2:36 AM EST documented as of this encounter Care Teams Erp Programmer Relationship Specialty Start Date End Date Pcp, No [address] [place] [address] PCP - General Family Medicine 08/16/24 documented as of this encounter
--- OUTSIDE RECORDS SUMMARY | 2024-12-26 15:43 | XMS_ITS | Clinical Summary ---
Author Organization Healthcare Address [facility] [address] [id number] Care Team Providers Care Home Stereo Equipment Installer Name Role Phone Pcp, No Primary Care Provider Unavailabl e Allergies No known active allergies Medications risperiDONE (RisperDAL) 1 MG/ML oral solution Take 0.5 mL (0.5 mg) by mouth nightly. Active cholecalciferol (Vitamin D3) 25 MCG (1000 UT) tablet Take 1 tablet (1,000 Units) by mouth daily. Active Social History Tobacco Use Types Packs/Day Years Used Date Smoking Tobacco: Every Day Cigarettes Smokeless Tobacco: Never Tobacco Cessation:Ready to Q uit: Not Asked; Counseling Given: Not Answered Alcohol Use Standard Drinks/Week Comments Not Currently [...] on file Sexual Orientation Not on file Last Filed Vital Signs Vital Sign Reading Time Taken Comments Blood Pressure 99/66 08/16/2024 2:23 AM EST Pulse 115 08/16/2024 2:23 AM EST Temperature 37.3 C (99.1 F) 08/16/2024 2:23 AM EST Respiratory Rate - - Oxygen Saturation 94% 08/16/2024 2:23 AM EST Inhaled Oxygen Concentration - - Weight 56.2 kg (124 lb) 08/16/2024 2:33 AM EST Height 165.1 cm (5' 5 ) 08/16/2024 2:33 AM EST Body Mass Index 20.63 08/16/2024 2:33 AM EST Plan of Treatment Not on file Insurance [facility] MEDICAID Care Teams Home Stereo Equipment Installer Relationship Specialty Start Date End Date Pcp, [place] [address] PCP - General Family Medicine 08/16/24
--- NOTE | 2024-12-26 15:53 | XR_ITS ---
PROCEDURE INFORMATION: Exam: XR Chest Exam date and time: 12/26/2024 4:07 PM Age: 54 years old Clinical indication: Cough; Additional info: Cough for one month TECHNIQUE: Imaging protocol: Radiologic exam of the chest. Views: 2 views. COMPARISON: No relevant prior studies available. FINDINGS: Airway: Airways are patent. Lungs: Linear atelectatic band in the right mid lung. No consolidations. Pleural spaces: No pleural effusions or pneumothorax. Heart/Mediastinum: No cardiomegaly. Bones/joints: No acute skeletal abnormality or aggressive osseous lesion. Mild multilevel degenerative changes of the spine. IMPRESSION: No acute findings.
--- NOTE | 2024-12-26 15:53 | XR_ITS ---
PROCEDURE INFORMATION: Exam: XR Pelvis Exam date and time: 12/26/2024 4:09 PM Age: 54 years old Clinical indication: Hip pain; Bilateral; Additional info: Bilateral hip pain TECHNIQUE: Imaging protocol: Radiologic exam of the pelvis. Views: 1 or 2 view. COMPARISON: No relevant prior studies available. FINDINGS: Bones/joints: Normal anatomic alignment. The bone density is normal for this patient's age. No acutely displaced fractures. No joint dislocation. No aggressive osseous lesions. Joint spaces are well preserved. Soft tissues: No acute soft tissue findings. Intraperitoneal space: 3 cm ovoid density projecting in the pelvis, of unclear etiology. Vasculature: There are numerous benign phleboliths in the pelvis. IMPRESSION: 1. No acute findings. 2. No significant osteoarthritic changes.
[2024-12-26 15:57] VITALS: BP 142/86; PULSE 93; RESP 20; TEMP 36.6; O2SAT 96; BMI 21.6
[2024-12-26 16:00] VITALS: BP 142/85; PULSE 90; RESP 18; O2SAT 98
[2024-12-26 16:10] LABS: Microscopic, Urine URINE MICROSCOPIC (MICROSCOPIC)
[2024-12-26 16:12] LABS: Bilirubin,Urine Negative (Negative); Color,Urine YELLOW (Yellow); Glucose,Urine (UA) Negative (Negative); Ketones,Urine Negative (Negative); Leukocyte Esterase,Urine 1+ (Negative); PH,Urine 6.0 (5.0-8.5); Protein,Urine Negative (Negative); Specific Gravity, Urine <= 1.005 (1.005-1.030); Urobilinogen,Urine 0.2 EU/dl (0.2)
[2024-12-26 16:30] VITALS: BP 117/88; PULSE 96; RESP 18; O2SAT 96
--- NOTE | 2024-12-26 16:41 | ECG_ITS ---
APPROVED REPORT Exam: Resting ECG HR:95 bpm ECG Measurements Heart Rate 95 AXES NM 159 P 57 QRSd 97 QRS -55 QT 289 T 56 QTc 341 Conclusion Normal sinus rhythm at [address] or T wave changes concerning for ischemia Electronically signed by : Dali Baez, 12/27/2024 02:26:53
[2024-12-26 16:43] LABS: Bacteria,Urine 1+ /lpf
[2024-12-26] MEDS: KETOROLAC 30MG/ML VIAL 30 MG IV (16:45)
[2024-12-26] MEDS: ACETAMINOPHEN 500MG TAB 1000 MG PO (16:45)
[2024-12-26] MEDS: IPRATROPIUM/ALBUTEROL 3 ML NEB IH (16:45)
[2024-12-26 16:54] LABS: Hematocrit 44.4 % (37.0-47.0); Hemoglobin 15.4 g/dL (12.2-16.2); Immature Granulocytes % 0.2 %; Mean Corpuscular HGB Conc 34.7 g/dL (31.8-35.4); Mean Corpuscular Hemoglobin 32.4 pg (27.0-31.2); Mean Corpuscular Volume 93.3 fl (81-99); Nucleated Red Blood Cells % 0 %; Platelet Count 222 K/mm3 (142-424); Red Blood Count 4.76 M/mm3 (4.20-5.40); Red Cell Distribution Width-SD 41.0 fL; White Blood Count 8.9 K/mm3 (4.8-10.8)
--- NOTE | 2024-12-26 16:58 | PC.NURSE ---
pt to restroom
--- NOTE | 2024-12-26 16:59 | PC.NURSE ---
gave pt a blanket
[2024-12-26] MEDS: CEFTRIAXONE 1 GM 1 GM in 0.9 % SODIUM CHLORIDE 50 ML IV (17:01)
[2024-12-26 17:07] LABS: Alanine Aminotransferase 39 U/L (12-78); Albumin Level 4.6 g/dl (3.5-5.0); Albumin/Globulin Ratio 1.2 (1.1-1.8); Alkaline Phosphatase 80 U/L (38-126); Anion Gap 13.1 mEq/L (5-15); Aspartate Amino Transferase 40 U/L (14-36); Bilirubin,Total 0.6 mg/dl (0.2-1.3); Blood Urea Nitrogen 5 mg/dl (7-17); Calcium 9.9 mg/dl (8.4-10.2); Carbon Dioxide 22 mmol/L (22.0-30.0); Chloride 108 mmol/L (98-107); Creatinine Clearance Estimated 75 mL/min (50-200); Creatinine,Serum 0.80 mg/dl (0.52-1.04); Estimated Glomerular Filt Rate 75 ml/min (>60); GFR (African American) 90 ML/MIN (>60); Globulin 3.7 g/dL (1.3-3.2); Glucose 123 mg/dl (74-100); Potassium 4.1 mmoL/L (3.5-5.1); Sodium 139 mmol/L (136-145); Total Protein,Serum 8.3 g/dl (6.3-8.2)
[2024-12-26 17:13] LABS: D-Dimer 1.16 ug/mL (0.0-0.5)
--- NOTE | 2024-12-26 17:21 | CT_ITS ---
PROCEDURE INFORMATION: Exam: CTA Chest With Contrast Exam date and time: 12/26/2024 5:43 PM Age: 54 years old Clinical indication: Shortness of breath and other: Tachcycardia; Additional info: Tachcyardia, shortness of breath TECHNIQUE: Imaging protocol: Computed tomographic angiography of the chest with contrast. Exam focused on the arteries. 3D rendering (Not supervised by radiologist): MIP and/or 3D reconstructed images were created by the technologist. Radiation optimization: All CT scans at this facility use at least one of these dose optimization techniques: automated exposure control; mA and/or kV adjustment per patient size (includes targeted exams where dose is matched to clinical indication); or iterative reconstruction. Contrast material: ISOVUE 370; Contrast volume: 75 ml; Contrast route: INTRAVENOUS (IV); COMPARISON: CR XR CHEST 2V 12/26/2024 4:07 PM FINDINGS: Pulmonary arteries: Normal. No pulmonary emboli. Aorta: Mild enlargement of the ascending thoracic aorta measuring 4 cm in maximum diameter. No dissection. Thyroid: Several small low-attenuation subcentimeter thyroid nodules bilaterally. No dominant or suspicious nodule identified. No follow-up required. Lungs: Unremarkable. No consolidation. No masses. Pleural spaces: Unremarkable. No pneumothorax. No pleural effusion. Heart: Unremarkable. No cardiomegaly. No pericardial effusion. Lymph nodes: Unremarkable. No enlarged lymph nodes. Bones/joints: Unremarkable. No acute fracture. Soft tissues: Unremarkable. IMPRESSION: No acute findings. Mild enlargement of the ascending thoracic aorta measuring 4 cm in maximum diameter. No dissection appreciated. COMMENTS: Consistent with the [employer]'s Incidental Findings Committee white paper (J Am Mary Ann Radiol 2015): In patients aged 35 years and older with an incidental thyroid nodule equal to or greater than 1.[address], MRI or extrathyroidal US, further evaluation with dedicated thyroid US is recommended for patients with normal life expectancy and without comorbidities. For smaller nodules without suspicious features, no further evaluation or follow up is recommended.
[2024-12-26 17:22] LABS: Troponin I < 0.01 ng/ml (0.00-0.034)
[2024-12-26 17:48] VITALS: BP 198/117; PULSE 100; RESP 18; O2SAT 97
[2024-12-26] MEDS: SODIUM CHLORIDE 0.9% 10ML SYR (RAD ONLY) 10 ML IV (17:48)
[2024-12-26] MEDS: 0.9 % SODIUM CHLORIDE 50 ML VIAL IV (17:48)
[2024-12-26] MEDS: IOPAMIDOL-370 (76%);100ML BOTTLE 70 ML IV (17:48)
[2024-12-26 17:50] VITALS: BP 163/115; PULSE 94; RESP 18; O2SAT 97
[2024-12-26 19:50] VITALS: BP 148/60; PULSE 74; RESP 16; TEMP 37.2; O2SAT 100
== END 2024-12-26 19:52 | disposition home or self-care (01) ==
PROVIDERS: Emergency Provider Student in an Organized Health Care Education/Training Program
DX: R10.9 Unspecified abdominal pain (principal); M79.18 Myalgia, other site; R05.9 Cough, unspecified; F17.210 Nicotine dependence, cigarettes, uncomplicated
CPT/HCPCS: 71046; 71275; 72170; 80053; 81001; 84484; 85025; 85378; 87086; 93005; 96365; 99285; J0696; J1885; Q9967